=== PATIENT | male | born 1975 | race Caucasian/White ===

== ENCOUNTER 2022-09-09 15:56 | Emergency (ER) | payer OTHER ==
[~2022-09-09] VITALS: Ht 188 cm; Wt 84.0 kg
[2022-09-09 16:23] VITALS: BP 106/67
== END 2022-09-10 02:25 | disposition left against medical advice (07) ==
LOC: ER 15:56
DX: Z53.21 Procedure and treatment not carried out due to patient leaving prior to being seen by health care provider (principal)